=== PATIENT | male | born 1955 | race Caucasian/White ===

== ENCOUNTER 2021-03-12 18:20 | Emergency (ER) | payer MEDICARE, OTHER ==
--- NOTE | 2021-03-12 18:36 | EDM.PDOC ---
<Nanda Minor - Last Filed: 03/22/21 21:35> ED HPI GENERAL MEDICAL PROBLEM - General Chief Complaint: Chest Pain Stated Complaint: CHEST, RIGHT SHOULDER, PAIN Time Seen by Provider: 03/12/21 18:36 - History of Present Illness INITIAL COMMENTS - FREE TEXT/NARRATIVE: ED with c/o mid sternal chest pain starting one hour prior after eating 2 dates. inititally felt like they were stuck, tried drinking water and takeing tums then pain started to radiate to right shoudler. Remote hx abilation. No prior NE or episodes of cardiac pain. Omeprazole prn as taking meloxicam for arthritis. Rates pain 3/10 has improved slightly since presentation . No SOB no sweating. Normal BM. No cough fever or chills. - Related Data Allergies Allergy/AdvReac Type Severity Reaction Status Date / Time No Known Allergies Allergy Verified 03/12/21 18:35 Home Meds: Home Meds Aspirin [Ecotrin EC] 81 mg PO DAILY 03/12/21 [History] Meloxicam 7.5 mg PO DAILY 03/12/21 [History] Omeprazole 20 mg PO DAILY 03/12/21 [History] atenoloL [Atenolol] 100 mg PO DAILY 03/12/21 [History] metFORMIN [Glucophage] 1,000 mg PO DAILY 03/12/21 [History] ED ROS GENERAL - Review of Systems Review Of Systems: Comprehensive ROS is negative, except as noted in HPI. ED EXAM, GENERAL - Physical Exam Exam: See Below Exam Limited By: No Limitations General Appearance: Alert, Anxious, Mild Distress Eye Exam: Bilateral Eye: EOMI, PERRL Ears: Normal External Exam, Hearing Grossly Normal Ear Exam: Bilateral Ear: Erythema Nose: Normal Inspection Throat/Mouth: Normal Inspection Head: Atraumatic, Normocephalic Neck: Normal Inspection Respiratory/Chest: No Respiratory Distress, Lungs Clear, Normal Breath Sounds Cardiovascular: Normal Peripheral Pulses, Regular Rate, Rhythm, No Edema, No Murmur GI/Abdominal: Normal Bowel Sounds, Soft, Non-Tender Back Exam: Normal Inspection Extremities: Normal Inspection Neurological: Alert, Oriented, Normal Cognition Psychiatric: Anxious (mild) Skin Exam: Warm, Dry, Intact, Normal Color Course - Re-Assessments/Exams Free Text/Narrative Re-Assessment/Exam: 03/13/21 03:42 [facility], no bed available. TC Dr Isak Santiago. Tx via [facility], Stable condition. Pain free. Departure - Departure Time of Disposition: 22:40 Disposition: DC/Tfer to Acute Hospital 02 Reason for Transfer *Q: Other Condition: Good Clinical Impression: NSTEMI (non-ST elevated myocardial infarction) Referrals: PCP,None [Primary Care Provider] - Forms: ED Department Discharge <EricJoy hayes - Last Filed: 03/24/21 22:05> ED HPI GENERAL MEDICAL PROBLEM - General Source of Information: Reports: Patient, RN, RN Notes Reviewed History Limitations: Reports: No Limitations Mid-Sternal Chest Pain Score (Numeric/FACES): 3 #1 Interpretation EKG Date: 03/12/21 Time: 18:32 Rhythm: NSR (1st Degree AVB) Rate (Beats/Min): 60 Independence: Normal P-Wave: Present QRS: RBBB ST-T: Normal QT: Normal CO/PQ Interval: 0.273 Comparison: NA - No Prior EKG EKG Interpretation Comments: NSR 1st Degree AVB; RBBB Course - Vital Signs Last Recorded V/S: Last Vital Signs Temp 97.5 F 03/12/21 18:26 Pulse 62 03/12/21 18:26 Resp 16 03/12/21 18:26 BP 154/85 H 03/12/21 20:53 Pulse Ox 96 03/12/21 18:26 - Orders/Labs/Meds Labs: Laboratory Tests 03/12/21 03/12/21 03/12/21 Range/Units 18:50 18:50 18:50 WBC 7.1 (5.0-10.0) 10^3/uL RBC 4.28 L (4.6-6.2) 10^6/uL Hgb 13.4 L (14.0-18.0) g/dL Hct 39.5 L (40.0-54.0) % MCV 92.3 (80-100) fL MCH 31.3 (27.0-34.0) pg MCHC 33.9 (33.0-35.0) g/dL Plt Count 218 (150-450) 10^3/uL Neut % (Auto) 50.3 (42.2-75.2) % Lymph % (Auto) 38.8 (20.5-50.1) % Bonner % (Auto) 9.6 H (2-8) % Eos % (Auto) 1.0 (1.0-3.0) % Baso % (Auto) 0.3 (0.0-1.0) % D-Dimer, Quantitative (0-400) ng/mL Sodium 139 (136-145) mmol/L Potassium 3.9 (3.5-5.1) mmol/L Chloride 101 (98-107) mmol/L Carbon Dioxide 27 (21-32) mmol/L Anion Gap 14.9 H (7-13) mEq/L BUN 18 (7-18) mg/dL Creatinine 1.07 (0.70-1.30) mg/dL Est Cr Clr Drug Dosing 74.54 mL/min Estimated GFR (MDRD) > 60 BUN/Creatinine Ratio 16.8 (No establ ref range) Glucose 96 (70-99) mg/dL Lactic Acid 1.2 (0.4-2.0) mmol/L Calcium 8.7 (8.5-10.1) mg/dL Total Bilirubin 0.8 (0.2-1.0) mg/dL AST 13 L (15-37) U/L ALT 28 (16-63) U/L Alkaline Phosphatase 47 (46-116) U/L Troponin I High Sens 60 (<=76) pg/mL C-Reactive Protein < 0.2 (0.0-0.9) mg/dL B-Natriuretic Peptide 85 (0-100) pg/ml Total Protein 7.2 (6.4-8.2) g/dL Albumin 4.1 (3.4-5.0) g/dL Globulin 3.1 Albumin/Globulin Ratio 1.3 Amylase (25-115) U/L Lipase (73-393) U/L Ethyl Alcohol < 3 (0) mg/dL SARS-CoV-2 RNA (KOBI) (NEGATIVE) 03/12/21 03/12/21 03/12/21 Range/Units 18:50 18:50 21:00 WBC (5.0-10.0) 10^3/uL RBC (4.6-6.2) 10^6/uL Hgb (14.0-18.0) g/dL Hct (40.0-54.0) % MCV (80-100) fL MCH (27.0-34.0) pg MCHC (33.0-35.0) g/dL Plt Count (150-450) 10^3/uL Neut % (Auto) (42.2-75.2) % Lymph % (Auto) (20.5-50.1) % Bonner % (Auto) (2-8) % Eos % (Auto) (1.0-3.0) % Baso % (Auto) (0.0-1.0) % D-Dimer, Quantitative 262 (0-400) ng/mL Sodium (136-145) mmol/L Potassium (3.5-5.1) mmol/L Chloride (98-107) mmol/L Carbon Dioxide (21-32) mmol/L Anion Gap (7-13) mEq/L BUN (7-18) mg/dL Creatinine (0.70-1.30) mg/dL Est Cr Clr Drug Dosing mL/min Estimated GFR (MDRD) BUN/Creatinine Ratio (No establ ref range) Glucose (70-99) mg/dL Lactic Acid (0.4-2.0) mmol/L Calcium (8.5-10.1) mg/dL Total Bilirubin (0.2-1.0) mg/dL AST (15-37) U/L ALT (16-63) U/L Alkaline Phosphatase (46-116) U/L Troponin I High Sens 867 H* (<=76) pg/mL C-Reactive Protein (0.0-0.9) mg/dL B-Natriuretic Peptide (0-100) pg/ml Total Protein (6.4-8.2) g/dL Albumin (3.4-5.0) g/dL Globulin Albumin/Globulin Ratio Amylase 47 (25-115) U/L Lipase 113 (73-393) U/L Ethyl Alcohol (0) mg/dL SARS-CoV-2 RNA (KOBI) (NEGATIVE) 03/12/21 Range/Units 22:11 WBC (5.0-10.0) 10^3/uL RBC (4.6-6.2) 10^6/uL Hgb (14.0-18.0) g/dL Hct (40.0-54.0) % MCV (80-100) fL MCH (27.0-34.0) pg MCHC (33.0-35.0) g/dL Plt Count (150-450) 10^3/uL Neut % (Auto) (42.2-75.2) % Lymph % (Auto) (20.5-50.1) % Bonner % (Auto) (2-8) % Eos % (Auto) (1.0-3.0) % Baso % (Auto) (0.0-1.0) % D-Dimer, Quantitative (0-400) ng/mL Sodium (136-145) mmol/L Potassium (3.5-5.1) mmol/L Chloride (98-107) mmol/L Carbon Dioxide (21-32) mmol/L Anion Gap (7-13) mEq/L BUN (7-18) mg/dL Creatinine (0.70-1.30) mg/dL Est Cr Clr Drug Dosing mL/min Estimated GFR (MDRD) BUN/Creatinine Ratio (No establ ref range) Glucose (70-99) mg/dL Lactic Acid (0.4-2.0) mmol/L Calcium (8.5-10.1) mg/dL Total Bilirubin (0.2-1.0) mg/dL AST (15-37) U/L ALT (16-63) U/L Alkaline Phosphatase (46-116) U/L Troponin I High Sens (<=76) pg/mL C-Reactive Protein (0.0-0.9) mg/dL B-Natriuretic Peptide (0-100) pg/ml Total Protein (6.4-8.2) g/dL Albumin (3.4-5.0) g/dL Globulin Albumin/Globulin Ratio Amylase (25-115) U/L Lipase (73-393) U/L Ethyl Alcohol (0) mg/dL SARS-CoV-2 RNA (KOBI) Negative (NEGATIVE) Meds: Medications Discontinued Medications Generic Name Dose Route Start Last Admin Trade Name Freq PRN Reason Stop Dose Admin Al Hydroxide/Mg Hydroxide 30 ml 03/12/21 19:50 03/12/21 20:07 Gi Cocktail Oral Solution 30 Ml PO 03/12/21 19:51 30 ml ONETIME ONE Administration Aspirin 324 mg 03/12/21 19:11 03/12/21 19:22 Aspirin 81 Mg Tab.Chew PO 03/12/21 19:12 324 mg ONETIME ONE Administration Famotidine 20 mg 03/12/21 19:50 03/12/21 20:02 Famotidine 20 Mg/2 Ml Sdv IVPUSH 03/12/21 19:51 20 mg ONETIME ONE Administration Heparin Sodium (Porcine) 4,000 units 03/12/21 21:36 03/12/21 21:48 Heparin Sodium 5,000 Units/Ml Vial IVPUSH 03/12/21 21:37 4,000 units .BOLUS ONE Administration Nitroglycerin/Dextrose 25 mg in 250 mls @ 6 mls/hr 03/12/21 21:45 03/12/21 21:48 Nitroglycerin 25 Mg/D5w 250 Ml IV 10 mcg/min TITRATE ZAID 6 mls/hr Administration Protocol 10 MCG/MIN Heparin Sodium/Sodium Chloride 25,000 units in 500 mls @ 23.65 mls/hr 03/12/21 21:45 03/12/21 21:49 Heparin 25,000 Units In 1/2 Ns 500 Ml IV 10.15 units/kg/hr TITRATE ZAID 20 mls/hr Administration Protocol 12 UNITS/KG/HR Heparin Sodium/Sodium Chloride 25,000 units in 500 mls @ 20 mls/hr 03/12/21 22:00 Heparin 25,000 Units In 1/2 Ns 500 Ml IV TITRATE ZAID Protocol 1,000 UNITS/HR Nitroglycerin 0.4 mg 03/12/21 19:15 03/12/21 19:24 Nitroglycerin 0.4 Mg Tab.[facility] 03/12/21 19:16 0.4 mg ONETIME ONE Administration Nitroglycerin 0.4 mg 03/12/21 20:45 03/12/21 20:53 Nitroglycerin 0.4 Mg Tab.[facility] 03/12/21 20:46 0.4 mg ONETIME ONE Administration Nitroglycerin 0.4 mg 03/12/21 21:32 Nitroglycerin 0.4 Mg Tab.[facility] 03/12/21 21:33 ONETIME ONE - Re-Assessments/Exams Free Text/Narrative Re-Assessment/Exam: 03/12/21 Care of patient transferred to Nanda Minor PA-C at 1900. Sepsis Event Note (ED) - Evaluation Sepsis Screening Result: No Definite Risk
[2021-03-12] MEDS ORDERED: Aspirin 81 MG Tab.Chew PO ONE (19:11)
[2021-03-12] MEDS ORDERED: Nitroglycerin 0.4 MG Tab.SL SL ONE ×3 (19:15→21:32)
[2021-03-12 19:16] LABS: ANION GAP 14.9 mEq/L (7-13); CHLORIDE,CL 101 mmol/L (98-107); SODIUM,NA 139 mmol/L (136-145)
--- NOTE | 2021-03-12 19:18 | CR ---
PROCEDURE INFORMATION: Exam: XR Chest Exam date and time: 03/12/2021 6:56 PM Age: 65 years old Clinical indication: Chest wall pain; Additional info: Chest pain TECHNIQUE: Imaging protocol: XR of the chest. Views: 1 view. COMPARISON: No relevant prior studies available. FINDINGS: Lungs: Unremarkable. No consolidation. Pleural spaces: Unremarkable. No pleural effusion. No pneumothorax. Heart/Mediastinum: Unremarkable. No cardiomegaly. Bones/joints: Unremarkable. IMPRESSION: No acute findings.
[2021-03-12] MEDS ORDERED: Famotidine 20 MG/2 ML SDV IVPUSH ONE (19:50)
[2021-03-12] MEDS ORDERED: GI Cocktail Oral Solution 30 ML PO ONE (19:50)
[2021-03-12] MEDS ORDERED: Heparin Sodium 5,000 Units/ML Vial IVPUSH ONE (21:36)
[2021-03-12] MEDS ORDERED: Nitroglycerin/D5W 25 MG/250 ML BOTTLE IV SCH (21:45)
[2021-03-12] MEDS ORDERED: Heparin Sodium/0.45% NaCl 25,000 UNITS/500 ML BAG IV SCH ×2 (21:45→22:00)
== END 2021-03-12 22:41 ==
LOC: DL.ED 18:20
DX: I21.4 Non-ST elevation (NSTEMI) myocardial infarction (principal); Z79.82 Long term (current) use of aspirin; Z79.899 Other long term (current) drug therapy; Z20.822 Contact with and (suspected) exposure to COVID-19
CPT/HCPCS: 36415; 71045; 80053; 80307; 82150; 83605; 83690; 83880; 84484; 85025; 85379; 86140; 93005; 96365; 96368; 96375; 99285; A9270; J1644; J3490; U0002